=== PATIENT | female | born 1940 | race African-American/Black ===

== ENCOUNTER 2021-04-25 13:00 | Emergency (ER) | payer MEDICARE, OTHER ==
[~2021-04-25] VITALS: Ht 165.1 cm; Wt 80.0 kg
[~2021-04-25 13:00] MED LIST: ACET1TAB12 PO; AMLO2.5T45 PO; BIMA2.5D4 EACHEYE; BRIM5DRO EACHEYE; DORZ10DR9 EACHEYE; HYDR100T26 PO; LOSA100T32 PO; OCD PO
[2021-04-25 14:26] LABS: CHLORIDE 110 mEq/L (98-107)
[2021-04-25 14:30] LABS: ETHANOL BLOOD < 10 mg/dL
[2021-04-25 14:47] LABS: BASOPHILS % 0.6 % (0.0-2.0); EOSINOPHILS % 3.6 % (0.0-5.0); HEMOGLOBIN. 11.5 g/dL (12.0-16.0); LYMPHOCYTES % 13.2 % (20.0-50.0); MEAN CORPUSCULAR HEMOGLOBIN 30.3 pg (28.0-32.0); MEAN CORPUSCULAR VOLUME 92.2 fL (81.0-99.0); MEAN PLATELET VOLUME 9.7 fl (7.4-10.4); MONOCYTES % 6.5 % (2.0-8.0); NEUTROPHILS % 76.1 % (40.0-76.0); PLATELET 205 x1000/uL (130-400); RED CELL DISTRIBUTION WIDTH 15.6 % (11.6-14.6)
[2021-04-25 15:24] LABS: CLARITY URINE CLOUDY (CLEAR); COLOR URINE YELLOW (YELLOW); KETONES URINE NEGATIVE (NEGATIVE); LEUKOCYTE ESTERASE URINE 2+ (NEGATIVE); NITRITE URINE POSITIVE (NEGATIVE); OCCULT BLOOD URINE NEGATIVE (NEGATIVE); PROTEIN URINE 1+ (NEGATIVE); SPECIFIC GRAVITY URINE 1.018 (1.005-1.030); UROBILINOGEN URINE 0.2 E.U./dL (0.2-1.0)
[2021-04-25 15:37] LABS: *AMPHETAMINES SCREEN URINE NEGATIVE (NEGATIVE); *BARBITURATES SCREEN URINE NEGATIVE (NEGATIVE); *BENZODIAZEPINES SCREEN URINE NEGATIVE (NEGATIVE); *COCAINE SCREEN URINE NEGATIVE (NEGATIVE); CANNABINOID URINE SCREEN NEGATIVE (NEGATIVE); METHADONE URINE SCREEN NEGATIVE (NEGATIVE); OPIATES URINE SCREEN NEGATIVE (NEGATIVE)
[2021-04-25 15:38] LABS: PHENCYCLIDINE URINE SCREEN NEGATIVE (NEGATIVE)
[2021-04-25 15:47] VITALS: BP 157/75
[2021-04-25] MEDS ORDERED: CIPR-263 MT (16:08)
[2021-04-25] MEDS ORDERED: NITR-87 MT (16:09)
[2021-04-25] MEDS ORDERED: CEFTRIAXONE 2 G PREMIX 50 ML IV ONE (16:30)
== END 2021-04-25 17:12 | disposition home or self-care (01) ==
LOC: ER 13:00
DX: Z04.89 Encounter for examination and observation for other specified reasons (principal); N39.0 Urinary tract infection, site not specified; F03.90 Unspecified dementia, unspecified severity, without behavioral disturbance, psychotic disturbance, mood disturbance, and anxiety; H40.9 Unspecified glaucoma; I10 Essential (primary) hypertension; W07.XXXA Fall from chair, initial encounter; Y93.89 Activity, other specified; Y92.9 Unspecified place or not applicable; Z79.82 Long term (current) use of aspirin
CPT/HCPCS: 36415; 70450; 80053; 80305; 80320; 81003; 85025; 87077; 87086; 87186; 96365; 99284; J0696; G0480

== ENCOUNTER 2021-05-07 09:10 | Inpatient (IN) | payer MEDICARE ==
[~2021-05-07] VITALS: Ht 165.1 cm; Wt 90.7 kg
[~2021-05-07 09:10] MED LIST changes: +CIPR-263 MT; +NITR-87 MT
[2021-05-07 11:22] LABS: BASOPHILS % 0.5 % (0.0-2.0); EOSINOPHILS % 3.4 % (0.0-5.0); HEMATOCRIT. 31.9 % (36.0-48.0); HEMOGLOBIN. 10.5 g/dL (12.0-16.0); MEAN CORPUSCULAR HEMOGLOBIN 29.9 pg (28.0-32.0); MEAN CORPUSCULAR VOLUME 91.3 fL (81.0-99.0); MEAN PLATELET VOLUME 7.8 fl (7.4-10.4); MONOCYTES % 9.8 % (2.0-8.0); NEUTROPHILS % 78.3 % (40.0-76.0); PLATELET 343 x1000/uL (130-400); RED CELL DISTRIBUTION WIDTH 15.7 % (11.6-14.6)
[2021-05-07 11:25] LABS: CHLORIDE 108 mEq/L (98-107)
[2021-05-07 11:28] LABS: INR 1.1; PROTHROMBIN TIME 11.3 sec (9.6-11.0)
[2021-05-07 11:59] LABS: CLARITY URINE CLEAR (CLEAR); COLOR URINE YELLOW (YELLOW); KETONES URINE NEGATIVE (NEGATIVE); LEUKOCYTE ESTERASE URINE 1+ (NEGATIVE); NITRITE URINE NEGATIVE (NEGATIVE); OCCULT BLOOD URINE NEGATIVE (NEGATIVE); PROTEIN URINE TRACE (NEGATIVE); SPECIFIC GRAVITY URINE 1.018 (1.005-1.030)
[2021-05-07 16:00] VITALS: BP 161/80
[2021-05-07 16:17] VITALS: BP 161/80
[2021-05-07] MEDS ORDERED: LOSA100T32 PO (16:58)
[2021-05-07] MEDS ORDERED: LOSA100T32 MT (16:58)
[2021-05-07] MEDS ORDERED: HYDR100T26 MT (16:58)
[2021-05-07 18:00] VITALS: BP 157/78
[2021-05-07 18:05] VITALS: BP 163/92
[2021-05-07] MEDS: HYDRALAZINE 20MG/ML VIAL IV PRN (18:21)
[2021-05-07 20:00] VITALS: BP 180/99
[2021-05-07] MEDS: CLONIDINE 0.2MG TABLET PO SCH (21:44)
[2021-05-07] MEDS: LOSARTAN POTASSIUM 50 MG TABLET PO SCH (21:44)
[2021-05-07] MEDS ORDERED: CEFTRIAXONE 1,000 MG in DEXTROSE 5% WATER 50 ML IV SCH (23:00)
[2021-05-08 04:00] VITALS: BP_SYST 115; BP_SYST 120; BP_DIAS 70; BP_DIAS 72
[2021-05-08] MEDS: CLONIDINE 0.2MG TABLET PO SCH (06:00)
[2021-05-08] MEDS: CEFTRIAXONE 1,000 MG in DEXTROSE 5% WATER 50 ML IV SCH (06:20)
[2021-05-08 08:00] VITALS: BP_SYST 141; BP_SYST 142; BP_DIAS 79; BP_DIAS 83
[2021-05-08] MEDS: LOSARTAN POTASSIUM 50 MG TABLET PO SCH (08:48)
[2021-05-08] MEDS: ENOXAPARIN 40MG/0.4ML SYR SUBCUT SCH (08:48)
[2021-05-08 12:00] VITALS: BP 144/81
[2021-05-08 15:47] VITALS: BP_SYST 129; BP_SYST 144; BP_DIAS 67; BP_DIAS 75
[2021-05-08 20:00] VITALS: BP_SYST 132; BP_SYST 149; BP_DIAS 70; BP_DIAS 79
[2021-05-09] VITALS (7 sets, daily range): BP systolic 142–167; BP diastolic 68–91
[2021-05-09] MEDS: HYDRALAZINE 20MG/ML VIAL IV PRN (00:52)
[2021-05-09] MEDS: HYDROCODONE/ACETAMINOPHEN 5/325MG TABLET PO PRN (01:49)
[2021-05-09] MEDS: ENOXAPARIN 40MG/0.4ML SYR SUBCUT SCH (08:50)
[2021-05-09] MEDS: CEFTRIAXONE 1,000 MG in DEXTROSE 5% WATER 50 ML IV SCH (08:50)
[2021-05-09] MEDS: LOSARTAN POTASSIUM 50 MG TABLET PO SCH (08:50)
[2021-05-09] MEDS ORDERED: FENTANYL CITRATE/PF 50MCG/ML 5ML VIAL ONE (13:49)
[2021-05-09] MEDS ORDERED: MIDAZOLAM HCL 5 MG/5 ML VIAL ONE (13:49)
[2021-05-09 17:08] LABS: BASOPHILS % 0.5 % (0.0-2.0); EOSINOPHILS % 3.1 % (0.0-5.0); HEMATOCRIT. 33.2 % (36.0-48.0); HEMOGLOBIN. 10.8 g/dL (12.0-16.0); LYMPHOCYTES % 8.4 % (20.0-50.0); MEAN CORPUSCULAR HEMOGLOBIN 30.2 pg (28.0-32.0); MEAN CORPUSCULAR VOLUME 92.6 fL (81.0-99.0); MEAN PLATELET VOLUME 8.4 fl (7.4-10.4); PLATELET 333 x1000/uL (130-400); RED BLOOD CELL COUNT 3.59 mill/uL (4.2-5.4); RED CELL DISTRIBUTION WIDTH 15.9 % (11.6-14.6)
[2021-05-09 21:55] LABS: CHLORIDE 108 mEq/L (98-107)
[2021-05-10] VITALS: BP_SYST 161; BP_SYST 163; BP_DIAS 82; BP_DIAS 83
[2021-05-10 04:00] VITALS: BP 150/75
[2021-05-10 08:00] VITALS: BP_SYST 116; BP_SYST 125; BP_DIAS 63; BP_DIAS 74
[2021-05-10] MEDS: LOSARTAN POTASSIUM 50 MG TABLET PO SCH ×2 (08:20→17:41)
[2021-05-10] MEDS: CEFTRIAXONE 1,000 MG in DEXTROSE 5% WATER 50 ML IV SCH (08:20)
[2021-05-10] MEDS: ENOXAPARIN 40MG/0.4ML SYR SUBCUT SCH (08:21)
[2021-05-10 12:00] VITALS: BP 116/63
[2021-05-10 13:10] LABS: BASOPHILS % 0.7 % (0.0-2.0); EOSINOPHILS % 5.9 % (0.0-5.0); HEMATOCRIT. 29.5 % (36.0-48.0); HEMOGLOBIN. 9.9 g/dL (12.0-16.0); LYMPHOCYTES % 14.9 % (20.0-50.0); MEAN CORPUSCULAR HEMOGLOBIN 30.4 pg (28.0-32.0); MEAN PLATELET VOLUME 7.9 fl (7.4-10.4); MONOCYTES % 12.1 % (2.0-8.0); NEUTROPHILS % 66.4 % (40.0-76.0); PLATELET 297 x1000/uL (130-400); RED BLOOD CELL COUNT 3.24 mill/uL (4.2-5.4); RED CELL DISTRIBUTION WIDTH 15.6 % (11.6-14.6)
[2021-05-10 13:16] LABS: CHLORIDE 109 mEq/L (98-107)
[2021-05-10 16:00] VITALS: BP 156/77
[2021-05-10 20:00] VITALS: BP 134/70
[2021-05-11] VITALS (7 sets, daily range): BP systolic 140–162; BP diastolic 74–84
[2021-05-11] MEDS: HYDRALAZINE 20MG/ML VIAL IV PRN (05:27)
[2021-05-11 07:43] LABS: CHLORIDE 108 mEq/L (98-107)
[2021-05-11 07:52] LABS: BASOPHILS % 0.8 % (0.0-2.0); HEMATOCRIT. 31.1 % (36.0-48.0); HEMOGLOBIN. 10.3 g/dL (12.0-16.0); LYMPHOCYTES % 18.6 % (20.0-50.0); MEAN CORPUSCULAR HEMOGLOBIN 30.5 pg (28.0-32.0); MEAN CORPUSCULAR VOLUME 92.2 fL (81.0-99.0); MEAN PLATELET VOLUME 8.3 fl (7.4-10.4); MONOCYTES % 11.5 % (2.0-8.0); NEUTROPHILS % 63.1 % (40.0-76.0); PLATELET 316 x1000/uL (130-400); RED BLOOD CELL COUNT 3.37 mill/uL (4.2-5.4); RED CELL DISTRIBUTION WIDTH 15.5 % (11.6-14.6)
[2021-05-11] MEDS: ENOXAPARIN 40MG/0.4ML SYR SUBCUT SCH (10:30)
[2021-05-11] MEDS: LOSARTAN POTASSIUM 50 MG TABLET PO SCH ×2 (10:30→16:28)
[2021-05-11] MEDS: CEFTRIAXONE 1,000 MG in DEXTROSE 5% WATER 50 ML IV SCH (10:31)
[2021-05-11] MEDS: MAGNESIUM OXIDE 400MG TABLET PO SCH (10:31)
[2021-05-12] VITALS: BP 170/84
[2021-05-12] MEDS: HYDRALAZINE 20MG/ML VIAL IV PRN (01:44)
[2021-05-12 04:00] VITALS: BP 157/80
[2021-05-12 08:00] VITALS: BP 140/72
[2021-05-12 09:04] VITALS: BP 140/72
[2021-05-12] MEDS: HYDROCODONE/ACETAMINOPHEN 5/325MG TABLET PO PRN (09:04)
[2021-05-12] MEDS: MAGNESIUM OXIDE 400MG TABLET PO SCH (09:05)
[2021-05-12] MEDS: LOSARTAN POTASSIUM 50 MG TABLET PO SCH (09:05)
[2021-05-12] MEDS: CEFTRIAXONE 1,000 MG in DEXTROSE 5% WATER 50 ML IV SCH (09:05)
[2021-05-12] MEDS: ENOXAPARIN 40MG/0.4ML SYR SUBCUT SCH (09:06)
[2021-05-12] MEDS ORDERED: ENOXAPARIN 30MG/0.3ML SYR SUBCUT SCH (21:00)
== END 2021-05-12 11:50 | disposition home health service (06) | DRG 689 ==
LOC: ER 09:16 → 8WST 12:24 → EDBEDREQ 13:29 → ENRESERV 13:55
PROVIDERS: ADMIT Internal Medicine; ATTEND Internal Medicine
DX: N39.0 Urinary tract infection, site not specified (principal); G93.41 Metabolic encephalopathy; E44.1 Mild protein-calorie malnutrition; E66.9 Obesity, unspecified; I10 Essential (primary) hypertension; R00.1 Bradycardia, unspecified; D63.8 Anemia in other chronic diseases classified elsewhere; Z87.440 Personal history of urinary (tract) infections; Z88.6 Allergy status to analgesic agent; Z79.899 Other long term (current) drug therapy; Z79.01 Long term (current) use of anticoagulants; Z91.81 History of falling; Z68.33 Body mass index [BMI] 33.0-33.9, adult; H40.9 Unspecified glaucoma
CPT/HCPCS: 36415; 71045; 73080; 73090; 73502; 80048; 80053; 81003; 83735; 83880; 84443; 84484; 85025; 93005; 93306; 97162; 97530; 99285; A6261; J0360; J0696; J1650; J2250; J3010; J7060

== ENCOUNTER 2022-04-09 13:23 | Emergency (ER) | payer MEDICARE ==
[~2022-04-09] VITALS: Ht 175.3 cm; Wt 114.0 kg
[~2022-04-09 13:23] MED LIST changes: -DORZ10DR9 EACHEYE
[2022-04-09] MEDS ORDERED: ACETAMINOPHEN 325MG TABLET PO ONE (15:00)
[2022-04-09] MEDS ORDERED: TOPUD MT (15:11)
[2022-04-09 19:00] VITALS: BP 112/82
== END 2022-04-09 19:13 | disposition home or self-care (01) ==
LOC: ER 13:32
DX: L89.151 Pressure ulcer of sacral region, stage 1 (principal); I10 Essential (primary) hypertension; Z88.6 Allergy status to analgesic agent
CPT/HCPCS: 99283